=== PATIENT | male | born 2000 | race Two or more races ===

== ENCOUNTER 2020-12-10 17:17 | Emergency (ER) | payer SELFPAY ==
[~2020-12-10] VITALS: Ht 167.6 cm; Wt 82.5 kg
--- NOTE | 2020-12-10 18:21 | NUR ---
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
[2020-12-10] MEDS ORDERED: KETOROLAC 30 MG/1 ML ONE (19:18)
[2020-12-10] MEDS ORDERED: KETOROLAC 30 MG/1 ML IM ONE (19:30)
[2020-12-10 19:33] VITALS: BP 121/62
== END 2020-12-10 20:36 | disposition home or self-care (01) ==
LOC: ED 17:47
DX: M79.631 Pain in right forearm (principal); M77.8 Other enthesopathies, not elsewhere classified
CPT/HCPCS: 29125; 73090; 96372; 99283; J1885